=== PATIENT | female | born 1995 | race Hispanic/Latino ===

== ENCOUNTER 2017-11-17 16:34 | Emergency (ER) | payer SELFPAY ==
[2017-11-17] MEDS ORDERED: NORCO 5/325 PO ONE (18:24)
[2017-11-17] MEDS ORDERED: BICILLIN L-A IM ONE (18:29)
--- NOTE | 2017-11-17 18:29 | Emergency Department Report ---
ED ENT HPI - General Chief complaint: Dental/Oral Stated complaint: TOOTH PAIN Time Seen by Provider: 11/17/17 18:16 Source: patient Mode of arrival: Ambulatory Limitations: No Limitations - History of Present Illness Initial comments: This is a 22-year-old female who presents with toothache and left upper side for 3 days. Patient states she has taken Tylenol and ibuprofen with no improvement of symptoms. She admits to hasn't pass toothache with chipped tooth which has not given her any problems until this week. Patient states she does not have insurance and cannot follow up with dentist at this time. Pain is worse with eating. Pain is 10 out of 10 on pain scale with a throbbing sharp sensation. She denies sore throat, fever, drooling, tongue swelling, shortness of breath. MD complaint: tooth pain Onset/Timin -: days(s) Location: tooth # (#15) 1 - Fracture #15 Severity: severe Severity scale (0 -10): 10 Quality: stabbing, constant Consistency: constant Improves with: none Worsens with: eating Context- Dental: history of dental caries, poor dental care Associated Symptoms: gum swelling, toothache. denies: fever, cough, tinnitus, hearing loss, discharge from ear, rhinorrhea - Related Data Previous Rx's Medication Instructions Recorded Last Taken Type Amoxicillin 500 mg PO BID #20 capsule 11/17/17 Unknown Rx Naproxen [Naprosyn] 500 mg PO BID #14 tablet 11/17/17 Unknown Rx traMADol [Ultram 50 MG tab] 50 mg PO Q6HR PRN #12 tablet 11/17/17 Unknown Rx Allergies Allergy/AdvReac Type Severity Reaction Status Date / Time No Known Allergies Allergy Unverified 11/17/17 16:50 ED Dental HPI - General Chief complaint: Dental/Oral Stated complaint: TOOTH PAIN Time Seen by Provider: 11/17/17 18:16 Source: patient Mode of arrival: Ambulatory Limitations: No Limitations - Related Data Previous Rx's Medication Instructions Recorded Last Taken Type Amoxicillin 500 mg PO BID #20 capsule 11/17/17 Unknown Rx Naproxen [Naprosyn] 500 mg PO BID #14 tablet 11/17/17 Unknown Rx traMADol [Ultram 50 MG tab] 50 mg PO Q6HR PRN #12 tablet 11/17/17 Unknown Rx Allergies Allergy/AdvReac Type Severity Reaction Status Date / Time No Known Allergies Allergy Unverified 11/17/17 16:50 ED Review of Systems ROS: Stated complaint: TOOTH PAIN Other details as noted in HPI Constitutional: denies: chills, fever ENT: dental pain (fractured tooth #15). denies: ear pain, throat pain Respiratory: denies: cough, shortness of breath, wheezing Cardiovascular: denies: chest pain, palpitations Gastrointestinal: denies: abdominal pain, nausea, diarrhea Neurological: headache. denies: weakness, paresthesias Psychiatric: denies: anxiety, depression ED Past Medical Hx - Past Medical History Previous Medical History?: Yes - Surgical History Past Surgical History?: No - Social History Smoking Status: Current Every Day Smoker - Medications Home Medications: Home Medications Medication Instructions Recorded Confirmed Last Taken Type Amoxicillin 500 mg PO BID #20 capsule 11/17/17 Unknown Rx Naproxen [Naprosyn] 500 mg PO BID #14 tablet 11/17/17 Unknown Rx traMADol [Ultram 50 MG tab] 50 mg PO Q6HR PRN #12 tablet 11/17/17 Unknown Rx ED Physical Exam - General Limitations: No Limitations General appearance: alert, in no apparent distress - ENT ENT exam: Present: mucous membranes moist, other (partial to #15, dental caries noted, tenderness, surrounding mucosal swelling) - Neck Neck exam: Present: normal inspection, full ROM. Absent: tenderness, meningismus, lymphadenopathy - Respiratory Respiratory exam: Present: normal lung sounds bilaterally. Absent: respiratory distress - Cardiovascular Cardiovascular Exam: Present: regular rate, normal rhythm. Absent: systolic murmur, diastolic murmur, rubs, gallop - GI/Abdominal GI/Abdominal exam: Present: soft, normal bowel sounds - Neurological Exam Neurological exam: Present: alert, oriented X3 - Psychiatric Psychiatric exam: Present: normal affect, normal mood - Skin Skin exam: Present: warm, dry, intact, normal color. Absent: rash ED Course Vital Signs 11/17/17 16:45 Temperature 98.6 F Pulse Rate 68 Respiratory 18 Rate Blood Pressure 107/65 O2 Sat by Pulse 98 Oximetry ED Medical Decision Making - Medical Decision Making This is a 22-year-old female that presents with toothache for 3 days. Patient is stable and was examined by me. Given norco and Bicillin once in ER. Susceptible of dental caries. Discussed plan with patient. She agreed with ER plan. Discharged home with amoxicillin, naproxen, and tramadol. Follow up with dentist. Critical care attestation.: If time is entered above; I have spent that time in minutes in the direct care of this critically ill patient, excluding procedure time. ED Disposition Clinical Impression: Dental caries Tooth fracture Qualifiers: Encounter type: initial encounter Fracture type: closed Qualified Code(s): S02.5XXA - Fracture of tooth (traumatic), initial encounter for closed fracture Disposition: TO HOME OR SELFCARE Is pt being admited?: No Does the pt Need Aspirin: No Condition: Stable Instructions: Dental Caries (ED), Toothache (ED) Additional Instructions: Complete all days of amoxicillin as prescribed for 14 days. Follow up with Dentist in 24-72 hours for further management of care. Prescriptions: Amoxicillin 500 mg PO BID #20 capsule Naproxen [Naprosyn] 500 mg PO BID #14 tablet traMADol [Ultram 50 MG tab] 50 mg PO Q6HR PRN #12 tablet PRN Reason: Pain Referrals: [facility] [Outside] - 3-5 Days [facility] [Outside] - 3-[address] [facility] [Outside] - 3-5 Days [facility] [Outside] - 3-5 Days Time of Disposition: 18:40 Print Language: LIBYAN
[2017-11-17 19:30] VITALS: BP 132/74
== END 2017-11-17 19:28 | disposition home or self-care (01) ==
LOC: ED 16:34
DX: S02.5XXA Fracture of tooth (traumatic), initial encounter for closed fracture (principal); K02.9 Dental caries, unspecified; F17.200 Nicotine dependence, unspecified, uncomplicated; X58.XXXA Exposure to other specified factors, initial encounter; Y93.9 Activity, unspecified; Y99.8 Other external cause status; Y92.89 Other specified places as the place of occurrence of the external cause
CPT/HCPCS: 96372; 99282; J0561

== ENCOUNTER 2018-05-17 09:12 | Emergency (ER) | payer SELFPAY ==
[2018-05-17 09:17] VITALS: BP 127/89
--- NOTE | 2018-05-17 11:01 | Emergency Department Report ---
HPI - General Chief Complaint: Dental/Oral Time Seen by Provider: 05/17/18 10:18 - HPI HPI: This is a 22-year-old female here for toothache to upper right and left tooth. Since been ongoing for 2 weeks and she does not have a dentist. Pain is 10/10 and achy worse with talking and eating. She says she has been taking Tylenol and Excedrin without any relief. Patient was here in 2018 for similar problems but did not follow-up with a dentist. She denies any nausea vomiting, any drooling any sore throat. Any nasal congestion or runny nose. She denies any cough or shortness of breath. ED Past Medical Hx - Past Medical History Previous Medical History?: No - Surgical History Past Surgical History?: No - Family History Family history: no significant - Social History Smoking Status: Current Every Day Smoker Substance Use Type: None - Medications Home Medications: Home Medications Medication Instructions Recorded Confirmed Last Taken Type Amoxicillin 500 mg PO BID #20 capsule 11/17/17 Unknown Rx Naproxen [Naprosyn] 500 mg PO BID #14 tablet 11/17/17 Unknown Rx traMADol [Ultram 50 MG tab] 50 mg PO Q6HR PRN #12 tablet 11/17/17 Unknown Rx Acetaminophen/Codeine [Tylenol 1 tab PO Q6H PRN #14 tab 05/17/18 Unknown Rx /Codeine # 3 tab] Clindamycin [Clindamycin CAP] 300 mg PO Q8H 10 Days #30 cap 05/17/18 Unknown Rx Ibuprofen [Motrin] 800 mg PO Q8HR PRN #12 tablet 05/17/18 Unknown Rx ED Review of Systems ROS: Stated complaint: TOOTH ACHE Other details as noted in HPI Constitutional: denies: chills, fever Eyes: denies: eye discharge ENT: dental pain. denies: ear pain, throat pain, hearing loss, congestion Respiratory: denies: cough, shortness of breath, wheezing Cardiovascular: denies: chest pain, palpitations, edema, syncope Musculoskeletal: denies: back pain, joint swelling, arthralgia, myalgia Skin: denies: rash Neurological: denies: headache Physical Exam - Physical Exam Vital Signs: Vital Signs 05/17/18 09:16 Temperature 97.6 F Pulse Rate 78 Respiratory 18 Rate Blood Pressure 127/89 O2 Sat by Pulse 99 Oximetry General: This is a 22-year-old female well-nourished well-developed in no acute distress. Physical Exam: Head: Normocephalic atraumatic Ears:BIateral TM pearly huston . Manolo EAC with normal exam. No mastoid bone tenderness. Mouth: Moist, no pharyngeal erythema or exudate . Noted dental tenderness around the gumline. With minimal swollen Tongue is normal and oral airways patent. Uvula is midline. No abscess noted but noted dental tenderness around tooth # 6 and 32. Noted dental cavities to several teeth without any pulp exposure. Lip is normal. Neck: Nontender to palpate, supple, normal range of motion. No adenopathy. No c- spine tenderness. Nose: Bilateral nasal mucosa normal exam maxillary and frontal sinuses non- tender to palpate. Eyes: Bilateral Sclerae and conjunctiva without injection. Bilateral pupils equal and reactive to light. Bilateral lids are normal. Normal accommodation.BEOMI Lungs: Clear to auscultate bilaterally, no rhonchi wheezes or rales. Normal work of breathing and no chest wall tenderness CV: S1, S2. Regular rate and rhythm negative murmur. Capillary refill is less than 3 seconds Extremity: No clubbing, cyanosis or edema. +2 pulses in all extremities and no neurovascular compromise Skin: Clean dry and intact, no rashes or lesions ED Course Vital Signs 05/17/18 09:16 Temperature 97.6 F Pulse Rate 78 Respiratory 18 Rate Blood Pressure 127/89 O2 Sat by Pulse 99 Oximetry - Reevaluation(s) Reevaluation #1: 05/17/18 11:30 Patient given Percocet 5/325 2 tablets, Motrin 800 mg by mouth and clindamycin 600 mg in the emergency room. Pain is better. ED Medical Decision Making - Medical Decision Making This is a 22-year-old female here for toothache. Please refer to my note for details. Assessment/plan Toothache-patient given Jarratt and Motrin and will discharged on Tylenol 3 and Motrin. Gingivitis with dental caries-given clindamycin and will discharge him with clindamycin and referred to dentist and community. I discussed the patient her diagnosis and treatment plan and this very important that she follow up with dentist to fix underlying problem and she voiced understanding. Discharged from ED in stable condition with prescription for clindamycin, Motrin and Tylenol 3. Pain is better. Critical care attestation.: If time is entered above; I have spent that time in minutes in the direct care of this critically ill patient, excluding procedure time. ED Disposition Clinical Impression: Tooth ache, Gingivitis, Dental caries Disposition: DC- TO HOME OR SELFCARE Is pt being admited?: No Does the pt Need Aspirin: No Condition: Stable Instructions: Dental Caries (ED), Toothache (ED), Gingivitis (ED) Additional Instructions: Please follow up with dentist referred to and 2 days. See discharge instruction paperwork for details Take medication as prescribed but is to not drive or operate machinery when taking Tylenol No. 3 as medication causes drowsiness Referrals: [facility] [Outside] - 05/19/18 [facility] [Outside] - 05/19/18 YOGI BOWERS MD [Primary Care Provider] - 3-5 Days Forms: Work/School Release Form(ED)
[2018-05-17] MEDS ORDERED: PERCOCET 5/325 PO ONE (11:02)
[2018-05-17] MEDS ORDERED: CLEOCIN PO ONE (11:02)
[2018-05-17] MEDS ORDERED: IBUPROFEN PO ONE (11:02)
== END 2018-05-17 11:49 | disposition home or self-care (01) ==
LOC: ED 09:12
DX: K02.9 Dental caries, unspecified (principal); K05.10 Chronic gingivitis, plaque induced; F17.200 Nicotine dependence, unspecified, uncomplicated
CPT/HCPCS: 99282

== ENCOUNTER 2020-01-31 10:04 | Emergency (ER) | payer OTHER ==
[2020-01-31 10:10] VITALS: BP 121/72
--- NOTE | 2020-01-31 10:40 | Emergency Department Report ---
ED General Adult HPI - General Chief complaint: Dental/Oral Stated complaint: TOOTHACHE Time Seen by Provider: 01/31/20 10:33 Source: patient Mode of arrival: Ambulatory Limitations: No Limitations - History of Present Illness Initial comments: 24-year-old female patient presents with complaints of right upper dental pain x2 days. Patient states she broke her wrist and tooth 2 days ago and has been having worsening pain and swelling since. She denies any fever/chills/sweats, facial swelling, difficulty swallowing or opening her jaw. She rates her current pain as a 10/10 in severity. She denies currently following with a dental specialist - Related Data Previous Rx's Medication Instructions Recorded Last Taken Type Amoxicillin 500 mg PO BID #20 capsule 11/17/17 Unknown Rx Naproxen [Naprosyn] 500 mg PO BID #14 tablet 11/17/17 Unknown Rx traMADoL [Ultram 50 MG tab] 50 mg PO Q6HR PRN #12 tablet 11/17/17 Unknown Rx Clindamycin [Clindamycin CAP] 300 mg PO Q8H 10 Days #30 cap 05/17/18 Unknown Rx Ibuprofen [Motrin] 800 mg PO Q8HR PRN #12 tablet 05/17/18 Unknown Rx Acetaminophen/Codeine [Tylenol 1 tab PO Q8H PRN #10 tab 01/31/20 Unknown Rx /Codeine # 3 tab] Amoxicillin [Trimox CAP] 500 mg PO Q8H 7 Days #21 capsule 01/31/20 Unknown Rx Allergies Allergy/AdvReac Type Severity Reaction Status Date / Time No Known Allergies Allergy Verified 01/31/20 10:04 ED Review of Systems ROS: Stated complaint: TOOTHACHE Other details as noted in HPI Constitutional: denies: chills, diaphoresis, fever, malaise, weakness ENT: dental pain. denies: throat pain Respiratory: denies: cough Endocrine: denies: excessive sweating Gastrointestinal: denies: nausea, vomiting Skin: denies: rash, lesions, change in color Neurological: denies: headache, numbness, paresthesias Hematological/Lymphatic: denies: swollen glands ED Past Medical Hx - Past Medical History Previous Medical History?: No - Surgical History Past Surgical History?: No - Social History Smoking Status: Current Every Day Smoker Substance Use Type: None - Medications Home Medications: Home Medications Medication Instructions Recorded Confirmed Last Taken Type Amoxicillin 500 mg PO BID #20 capsule 11/17/17 Unknown Rx Naproxen [Naprosyn] 500 mg PO BID #14 tablet 11/17/17 Unknown Rx traMADoL [Ultram 50 MG tab] 50 mg PO Q6HR PRN #12 tablet 11/17/17 Unknown Rx Clindamycin [Clindamycin CAP] 300 mg PO Q8H 10 Days #30 cap 05/17/18 Unknown Rx Ibuprofen [Motrin] 800 mg PO Q8HR PRN #12 tablet 05/17/18 Unknown Rx Acetaminophen/Codeine [Tylenol 1 tab PO Q8H PRN #10 tab 01/31/20 Unknown Rx /Codeine # 3 tab] Amoxicillin [Trimox CAP] 500 mg PO Q8H 7 Days #21 capsule 01/31/20 Unknown Rx ED Physical Exam - General Limitations: No Limitations General appearance: alert, in no apparent distress - Head Head exam: Present: atraumatic, normocephalic - Eye Eye exam: Present: normal appearance. Absent: scleral icterus - Expanded ENT Exam Expanded Mouth exam: Present: tongue normal. Absent: drooling, trismus, muffled voice Teeth exam: Present: dental caries 1 - Fractured, Dental Tenderness, Other (Mild surrounding erythema with significant tenderness to palpation) Throat exam: Positive: normal inspection - Neck Neck exam: Present: normal inspection, full ROM. Absent: lymphadenopathy - Respiratory Respiratory exam: Present: normal lung sounds bilaterally. Absent: respiratory distress - Extremities Exam Extremities exam: Present: full ROM - Neurological Exam Neurological exam: Present: alert, oriented X3 - Psychiatric Psychiatric exam: Present: normal affect, normal mood - Skin Skin exam: Present: warm, dry, intact, normal color. Absent: rash, cyanosis, diaphoretic, ecchymosis ED Course Vital Signs 01/31/20 10:05 Temperature 97.8 F Pulse Rate 68 Respiratory 18 Rate Blood Pressure 121/72 O2 Sat by Pulse 98 Oximetry ED Medical Decision Making - Medical Decision Making 24-year-old female patient presents with complaints of right upper dental pain x2 days. Patient states she broke her wrist and tooth 2 days ago and has been having worsening pain and swelling since. She denies any fever/chills/sweats, facial swelling, difficulty swallowing or opening her jaw. She rates her current pain as a 10/10 in severity. She denies currently following with a dental specialist Fractured tooth with mild surrounding erythema noted on exam. Vitals are normal and patient is nontoxic-appearing. She is stable for discharge home with prescription for Amoxil and pain medication. Patient instructed to follow-up with a dental specialist within 24 to 48 hours. Patient was provided with with a dental specialist referral list. Strict return precautions were discussed in detail with patient who verbalizes understanding. Critical care attestation.: If time is entered above; I have spent that time in minutes in the direct care of this critically ill patient, excluding procedure time. ED Disposition Clinical Impression: Pain, dental Disposition: DC-01 TO HOME OR SELFCARE Is pt being admited?: No Condition: Stable Instructions: Dental Abscess Additional Instructions: Please follow-up with a dental specialist from the list provided within 24 to 48 hours. Prescriptions: Amoxicillin [Trimox CAP] 500 mg PO Q8H 7 Days #21 capsule Acetaminophen/Codeine [Tylenol /Codeine # 3 tab] 1 tab PO Q8H PRN #10 tab PRN Reason: Pain , Severe (7-10) Referrals: PRIMARY CARE, [Primary Care Provider] - 3-5 Days
[2020-01-31] MEDS ORDERED: oxyCODONE /ACETAMINOPHEN 5-325MG TAB PO ONE (11:05)
== END 2020-01-31 11:24 | disposition home or self-care (01) ==
LOC: ED 10:04
DX: K08.89 Other specified disorders of teeth and supporting structures (principal); R22.0 Localized swelling, mass and lump, head; F17.200 Nicotine dependence, unspecified, uncomplicated; Z79.2 Long term (current) use of antibiotics; Z79.1 Long term (current) use of non-steroidal anti-inflammatories (NSAID); Z79.899 Other long term (current) drug therapy
CPT/HCPCS: 99282